=== PATIENT | male | born 1980 | race Caucasian/White ===

== ENCOUNTER 2018-06-19 01:20 | Emergency (ER) | payer SELFPAY ==
--- NOTE | 2018-06-19 01:32 | ER Document Report ---
ED General - General Stated Complaint: POSSIBLE OVERDOSE Time Seen by Provider: 06/19/18 01:27 Notes: Patient is a 38-year-old male who was found unresponsive at the [facility]. Patient was given Narcan and eventually woke up. He was apneic and when paramedics arrived the first responders were giving him positive ventilation. Her medics that when they arrived his pupils were pinpoint and that is why they gave him Narcan. He is now awake and alert after receiving Narcan. He says he is been on Xanax but moved here from [place] and has been able get any. Recently got some Xanax and took it tonight and he thinks is what caused to become apneic. He denies take any other drugs or any other medications. He denies any other medical issues at this time. He he says only thing he has a slight headache. Denies any focal weakness or numbness. No nausea. No vomiting. No recent fevers or infections. - Related Data Allergies/Adverse Reactions: No Known Drug Allergies Allergy (Verified 06/19/18 01:37) Past Medical History - Social History Smoking Status: Current Every Day Smoker Frequency of alcohol use: Occasional Drug Abuse: Prescription drugs Family History: Reviewed & Not Pertinent Review of Systems - Review of Systems Notes: My Normal Review Basic REVIEW OF SYSTEMS: CONSTITUTIONAL : Denies fever, chills, or sweats. Denies recent illness. EENT: Denies eye, ear, throat, or mouth pain or symptoms. Denies nasal or sinus congestion. CARDIOVASCULAR: Denies chest pain. RESPIRATORY: Apneic after taking Xanax. GASTROINTESTINAL: Denies abdominal pain. Denies nausea, vomiting, or diarrhea. Denies constipation. Last BM: MUSCULOSKELETAL: Denies neck or back pain or joint pain or swelling. SKIN: Denies rash or skin lesions. NEUROLOGICAL: Had a period of loss of consciousness after taking Xanax. Currently complains of just mild headache. No other complaints. PSYCHIATRIC: Denies suicidal ideations. ALL OTHER SYSTEMS REVIEWED AND NEGATIVE. Physical Exam - Vital signs Vitals: Resp Pulse Ox 19 96 06/19/18 01:29 06/19/18 01:29 - Notes Notes: General Appearance: Well nourished, alert, cooperative, no acute distress, no obvious discomfort. Vitals: reviewed, See vital signs table. Head: no swelling or tenderness to the head Eyes: PERRL, EOMI, Conjuctiva clear Mouth: No decreasd moisture Throat: No tonsillar inflammation, No airway obstruction, No lymphadenopathy Neck: Supple, no neck tenderness, No thyromegaly Lungs: No wheezing, No rales, No rhonci, No accessory muscle use, good air exchange bilaterally. Heart: Normal rate, Regular rythm, No murmur, no rub Abdomen: Normal BS, soft, No rigidity, No abdominal tenderness, No guarding, no rebound, no abdominal masses, no organomegaly Extremities: strength 5/5 in all extremities, good pulses in all extremities, no swelling or tenderness in the extremities, no edema. Skin: warm, dry, appropriate color, no rash Neuro: speech clear, oriented x 3, normal affect, responds appropriately to questions. Cranial nerves II through XII are intact. Normal gait. Normal balance. Moves all extremities without difficulty. No focal neurologic deficits on exam. Course - Re-evaluation Re-evalutation: 06/19/18 05:31 Patient has not been watching somewhere also monitor. He had no recurrent hypoxemia. He is awake alert and acting appropriately. At this time I feel he safe to be discharged home. I do suspect there is some form of opiate overdose in conjunction with him taking Xanax and that the paramedics found him apneic with pinpoint pupils and he responded to Narcan. I did write him a prescription for Narcan nasal spray. Informed him to avoid any medications are not prescribed for him or any drugs not prescribed form as these can lead to . Patient shows understanding of this and will be discharged home. He has no further questions at this time. Dictation of this chart was performed using voice recognition software; therefore, there may be some unintended grammatical errors. - Vital Signs Vital signs: Temp Pulse Resp BP Pulse Ox 18 95 06/19/18 04:00 06/19/18 04:00 Discharge - Discharge Clinical Impression: Overdose Qualifiers: Encounter type: initial encounter Injury intent: accidental or unintentional Qualified Code(s): T50.901A - Poisoning by unspecified drugs, medicaments and biological substances, accidental (unintentional), initial encounter Condition: Good Disposition: HOME, SELF-CARE Additional Instructions: Please avoid any medications or durgs not prescribed to you. Use of medications or drugs not prescribed to you may result in . I have prescribed you Narcan. People will still potentially overdose or take too much of an opiate medication. Please keep the Narcan with you so as if you do overdose again you have a medication that can reverse the overdose so that you do not stop breathing. If you have to use the Narcan you should return to the ER immediately. Prescriptions: Naloxone HCl [Narcan] 4 mg NS XENIA #1 spray
[2018-06-19] MEDS ORDERED: ACETAMINOPHEN 325 MG TABLET PO ONE (02:05)
[2018-06-19 05:36] VITALS: BP 122/78
== END 2018-06-19 05:43 | disposition home or self-care (01) ==
LOC: ER 01:20
DX: T50.901A Poisoning by unspecified drugs, medicaments and biological substances, accidental (unintentional), initial encounter (principal); F17.210 Nicotine dependence, cigarettes, uncomplicated
CPT/HCPCS: 99284

== ENCOUNTER 2018-07-05 16:08 | Emergency (ER) | payer SELFPAY ==
[2018-07-05] MEDS ORDERED: NORMAL SALINE 1000 ML 1,000 ML IV ONE (16:39)
[2018-07-05] MEDS ORDERED: NORMAL SALINE 1000 ML 1,000 ML IV PRN (16:39)
--- NOTE | 2018-07-05 16:42 | ER Document Report ---
ED Medical Screen (RME) - General Chief Complaint: Headache Stated Complaint: BODY PAIN Time Seen by Provider: 07/05/18 16:33 Notes: 38 years old male, presents today with altered level of consciousness, drowsy, but arousable, could not get full history. Apparently was having cough and difficulty in breathing. He is diabetic, states his kicked him out of the house, all medications are with her. On examination-drowsy but arousable otherwise unremarkable TRAVEL OUTSIDE OF THE [place] IN LAST 30 DAYS: No - Related Data Allergies/Adverse Reactions: No Known Drug Allergies Allergy (Verified 06/19/18 01:37) Past Medical History Renal/ Medical History: Denies: Hx Peritoneal Dialysis Physical Exam - Vital signs Vitals: Temp Pulse Resp BP Pulse Ox 98.5 F 110 H 16 117/85 90 L 07/05/18 16:26 07/05/18 16:26 07/05/18 16:26 07/05/18 16:26 07/05/18 16:26 Course - Vital Signs Vital signs: Temp Pulse Resp BP Pulse Ox 98.5 F 110 H 16 117/85 90 L 07/05/18 16:26 07/05/18 16:26 07/05/18 16:26 07/05/18 16:26 07/05/18 16:26
--- NOTE | 2018-07-05 16:52 | ER Document Report ---
ED General - General Chief Complaint: Headache Stated Complaint: BODY PAIN Time Seen by Provider: 07/05/18 16:33 Notes: Patient is a 38-year-old male, past medical history diabetes, presents after his kicked him out of his house and he did not have any of his medications. Patient is drowsy with pinpoint pupils. Accu-Chek on arrival is 96. Patient is on a provide much additional history, but denies IV drug use, but hesitates when asked if he does any narcotic pills. 2 weeks ago, he had a similar presentation, where he was given Narcan due to drowsiness and he woke up. He was also admitted to taking benzos. Unable to obtain any additional history. TRAVEL OUTSIDE OF THE [place] IN LAST 30 DAYS: No - Related Data Allergies/Adverse Reactions: No Known Drug Allergies Allergy (Verified 06/19/18 01:37) Past Medical History - General Information source: Patient - Social History Smoking Status: Current Every Day Smoker Family History: Reviewed & Not Pertinent Patient has suicidal ideation: No Patient has homicidal ideation: No Endocrine Medical History: Reports: Hx Diabetes Mellitus Type 2 Renal/ Medical History: Denies: Hx Peritoneal Dialysis Review of Systems - Review of Systems -: Yes ROS unobtainable due to patient's medical condition Physical Exam - Vital signs Vitals: Temp Pulse Resp BP Pulse Ox 98.5 F 110 H 16 117/85 90 L 07/05/18 16:26 07/05/18 16:26 07/05/18 16:26 07/05/18 16:26 07/05/18 16:26 - Notes Notes: PHYSICAL EXAMINATION: GENERAL: Somnolent. No acute distress. Will awaken to voice, but quickly nods off. HEAD: Atraumatic, normocephalic. EYES: Pupils pinpoint, extraocular movements intact, sclera anicteric, conjunctiva are normal. ENT: nares patent, oropharynx clear without exudates. Moist mucous membranes. NECK: Normal range of motion, supple without lymphadenopathy LUNGS: Breath sounds clear to auscultation bilaterally and equal. Shallow breath sounds. HEART: Regular rate and rhythm without murmurs ABDOMEN: Soft, nontender, normoactive bowel sounds. No guarding, no rebound. No masses appreciated. EXTREMITIES: Normal range of motion, no pitting or edema. No cyanosis. NEUROLOGICAL: Somnolent, moving all 4 extremities. SKIN: Warm, Dry, normal turgor, no rashes or lesions noted. No track carlos noted. Course - Re-evaluation Re-evalutation: Pt somnolent and slightly hypoxic on arrival to the ER. He has a toxidrome of narcotic overdose, with slight hypoxia, shallow breath sounds and pinpoint pupils. 0.2 mg of Narcan was provided to the patient and he was wide awake. No longer hypoxic. He is not in DKA and his blood sugar was 96. We will continue to monitor and refer patient to detox when he is ready to stop using. He was given an intranasal Narcan prescription 2 weeks ago from the ER. 07/05/18 18:45 Patient wide awake and ambulating with a steady gait after an additional dose of Narcan. He will be discharged home with follow-up at his primary care physician and rehab. - Vital Signs Vital signs: Temp Pulse Resp BP Pulse Ox 98.5 F 110 H 13 113/81 99 07/05/18 16:26 07/05/18 16:26 07/05/18 18:01 07/05/18 18:00 07/05/18 18:01 - Laboratory Result Diagrams: 07/05/18 16:55 07/05/18 16:55 Laboratory results interpreted by me: 07/05/18 16:55 Direct Bilirubin 0.5 H - Diagnostic Test Radiology reviewed: Image reviewed, Reports reviewed Radiology results interpreted by me: CXR: NAD Discharge - Discharge Clinical Impression: Narcosis Condition: Stable Disposition: HOME, SELF-CARE Additional Instructions: NARCOTIC / OPIOD ABUSE: Narcotics and opiods are pain-relieving drugs that are often abused. They are addicting. Narcotics cause euphoria, but it often takes increasing amounts to "feel good" and avoid withdrawal symptoms. Overdose of narcotics causes small pupils, coma, and decreased breathing. It's a common cause of . Purity of street narcotics is unpredictable. Injection of narcotics is risky for abscesses, endocarditis (heart infection), pneumonia, and AIDS. Withdrawal from narcotics causes goose bumps, watery mouth, sweating, nasal congestion, muscle aches, abdominal cramps, vomiting, and diarrhea. There 's often restlessness and confusion. Treatment programs are available, but you must make the decision to quit. Medication (such as clonidine) can be prescribed to control the symptoms of withdrawal. OVERDOSE / INGESTION: You have taken more medication than you should have. After your evaluation and care, it is felt that your overdose is not likely to be harmful or of any significant consequences to you and you are being discharged. In the future, you should be careful not to take more medications than what is prescribed for you. Although your overdose does not seem to be of any danger to you at this time, if you develop any unusual or unexpected symptoms after your discharge, you should return to the Emergency Department immediately for re-evaluation. INSTRUCTIONS FOR HOME CARE FOLLOWING DRUG OVERDOSAGE: The doctor feels it's safe for you to go home. You will need to be observed. If charcoal and a laxative was given to you, expect some loose black stools soon. Take no medications unless approved by a physician, including alcohol. If drowsy, lie on your stomach or side for sleeping to avoid aspiration if vomiting occurs. Take only liquids by mouth until there is no more nausea. FOR THE OBSERVER: Observe the patient for the next 24 hours and call or go to the hospital if any of the following are noted: prolonged or repeated vomiting, difficulty in arousing, convulsions (seizures or fits), fever, persistent cough, breathing that is too slow or too rapid, or confused or bizarre behavior. If a counselling visit has been arranged, make sure the patient attends. Call the physician or poison control if you have questions. FOLLOW-UP CARE: If you have been referred to a physician for follow-up care, call the physician s office for an appointment as you were instructed or within the next two days. If you experience worsening or a significant change in your symptoms, notify the physician immediately or return to the Emergency Department at any time for re-evaluation. Forms: Elevated Blood Pressure Referrals: [facility] [Outside] - Follow up as needed
[2018-07-05] MEDS ORDERED: NALOXONE HCL INJ/PF 0.4 MG/1 ML SDV ONE (16:56)
[2018-07-05] MEDS ORDERED: NALOXONE HCL INJ/PF 0.4 MG/1 ML SDV IV ONE (16:58)
[2018-07-05 17:01] LABS: ABSOLUTE BASOPHILS # (AUTO) 0.1 10^3/uL (0.0-0.2); ABSOLUTE EOSINOPHILS # (AUTO) 0.2 10^3/uL (0.0-0.6); ABSOLUTE LYMPHOCYTES (AUTO) 2.1 10^3/uL (0.5-4.7); ABSOLUTE MONOCYTES (AUTO) 0.7 10^3/uL (0.1-1.4); ABSOLUTE NEUT (AUTO) 6.3 10^3/uL (1.7-8.2); BASOPHILS % (AUTO) 0.8 % (0-2); EOSINOPHILS % (AUTO) 1.7 % (0-6); HEMATOCRIT 45.1 % (37.9-51.0); HEMOGLOBIN 15.6 g/dL (13.5-17.0); LYMPHOCYTES % (AUTO) 22.9 % (13-45); MEAN CORPUSCULAR HEMOGLOBIN 30.6 pg (27.0-33.4); MEAN CORPUSCULAR HGB CONC 34.5 g/dL (32.0-36.0); MEAN CORPUSCULAR VOLUME 89 fl (80-97); MONOCYTES % (AUTO) 7.1 % (3-13); PLATELET COUNT 324 10^3/uL (150-450); RED BLOOD COUNT 5.08 10^6/uL (4.35-5.55); RED CELL DISTRIBUTION WIDTH 13.8 % (11.5-14.0); SEGMENTED NEUTROPHILS % (AUTO) 67.5 % (42-78); TOTAL CELLS COUNTED % (AUTO) 100 %; WHITE BLOOD COUNT 9.3 10^3/uL (4.0-10.5)
[2018-07-05 17:23] LABS: ALANINE AMINOTRANSFERASE 44 U/L (21-72); ALBUMIN 4.4 g/dL (3.5-5.0); ALKALINE PHOSPHATASE 70 U/L (38-126); ANION GAP 6 (5-19); ASPARTATE AMINO TRANSFERASE 27 U/L (17-59); BILIRUBIN,DIRECT 0.5 mg/dL (0.0-0.4); BILIRUBIN,TOTAL 0.7 mg/dL (0.2-1.3); BLOOD UREA NITROGEN 13 mg/dL (7-20); CALCIUM 9.8 mg/dL (8.4-10.2); CARBON DIOXIDE 30 mmol/L (22-30); CHLORIDE 105 mmol/L (98-107); GLUCOSE 100 mg/dL (75-110); POTASSIUM 4.7 mmol/L (3.6-5.0); SODIUM 141.3 mmol/L (137-145); TOTAL PROTEIN 8.1 g/dL (6.3-8.2)
[2018-07-05] MEDS ORDERED: NALOXONE HCL INJ 2 MG/2 ML DISP.SYRIN IV ONE (17:52)
--- NOTE | 2018-07-05 18:10 | RADIOLOGY REPORT (SQ) ---
EXAM DESCRIPTION: CHEST SINGLE VIEW COMPLETED DATE/TIME: 07/05/2018 5:31 pm REASON FOR STUDY: Cough COMPARISON: None. EXAM PARAMETERS: NUMBER OF VIEWS: One view. TECHNIQUE: Single frontal radiographic view of the chest acquired. RADIATION DOSE: NA LIMITATIONS: None. FINDINGS: LUNGS AND PLEURA: No focal consolidation, large pleural effusion, or pneumothorax. There appears to be excessively fissures versus collapse of the bilateral apices. MEDIASTINUM AND HILAR STRUCTURES: No masses. Contour normal. HEART AND VASCULAR STRUCTURES: Heart normal in size. Normal vasculature. BONES: No acute findings. HARDWARE: None in the chest. OTHER: No other significant finding. IMPRESSION: Bilateral apical blebs versus accessory fissures. No evidence of acute infectious proce ss or pneumothorax. TECHNICAL DOCUMENTATION: JOB ID: [id number] [employer]- All Rights Reserved Reading location - IP/workstation name: [email or web address]
[2018-07-05 18:40] LABS: APPEARANCE,URINE SLIGHTLY-CLOUDY; BILIRUBIN,URINE NEGATIVE (NEGATIVE); COLOR,URINE YELLOW; GLUCOSE, URINE NEGATIVE (NEGATIVE); KETONES,URINE NEGATIVE (NEGATIVE); LEUKOCYTE ESTERASE,URINE NEGATIVE (NEGATIVE); NITRITE,URINE NEGATIVE (NEGATIVE); PROTEIN,URINE NEGATIVE (NEGATIVE); URINE SPECIFIC GRAVITY 1.018; UROBILINOGEN,URINE NEGATIVE mg/dL (<2.0)
[2018-07-05 18:51] LABS: URINE BARBITURATES SCREEN NEGATIVE; URINE BENZODIAZEPINES SCREEN UNCONFIRMED POSITIVE; URINE COCAINE SCREEN NEGATIVE; URINE MARIJUANA (THC) SCREEN NEGATIVE; URINE METHADONE SCREEN NEGATIVE; URINE PHENCYCLIDINE SCREEN NEGATIVE
[2018-07-05 19:01] VITALS: BP 113/81
== END 2018-07-05 19:02 | disposition home or self-care (01) ==
LOC: ER 16:08
DX: R06.89 Other abnormalities of breathing (principal); R51 Headache; E11.9 Type 2 diabetes mellitus without complications; F17.200 Nicotine dependence, unspecified, uncomplicated
CPT/HCPCS: 96376; 99284; 96374; 36415; 82962; 85025; 80053; 81001; 80307; 71045; J2310 ×2